=== PATIENT | male | born 1975 | race Caucasian/White ===

== ENCOUNTER 2022-02-10 21:32 | Emergency (ER) | payer SELFPAY ==
[~2022-02-10] VITALS: Ht 165.1 cm; Wt 89.8 kg
[2022-02-10 21:54] VITALS: BP 144/73
--- NOTE | 2022-02-11 00:13 | NUR ---
PT TAKEN TO BED 3
[2022-02-11] MEDS ORDERED: KETOROLAC 30 MG/ML VIAL IVP ONE (00:30)
[2022-02-11] MEDS ORDERED: NACL 0.9% 1,000 ML IV ONE (00:30)
--- NOTE | 2022-02-11 01:15 | NUR ---
Patient A/Ox4, lying in bed, chest rise and fall symmetrical, no s/s of distress.
[2022-02-11 01:27] LABS: BASOPHILS # (AUTO) 0.1 K/uL (0.00-0.22); BASOPHILS % (AUTO) 1.1 % (0.0-2.0); EOSINOPHILS % (AUTO) 0.1 % (0.0-4.0); HEMATOCRIT 41.5 % (36-52); HEMOGLOBIN 14.3 g/dL (12.0-18.0); LYMPHOCYTES # (AUTO) 0.8 K/uL (2.0-11.5); LYMPHOCYTES % (AUTO) 6.9 % (20.5-51.1); MEAN CORPUSCULAR HEMOGLOBIN 29 pg (27-31); MEAN CORPUSCULAR HGB CONC 34 g/dL (33-37); MEAN CORPUSCULAR VOLUME 85.3 fL (80-94); MONOCYTES # (AUTO) 0.3 K/uL (0.8-1.0); MONOCYTES % (AUTO) 2.4 % (1.7-9.3); NEUTROPHILS # (AUTO) 10.9 K/uL (1.8-7.7); PLATELET COUNT (AUTO) 237 K/uL (140-450); RED BLOOD CELL COUNT(AUTO) 4.87 MIL/uL (4.20-6.10); RED CELL DISTRIBUTION WIDTH 13.3 % (11.6-13.7); WHITE BLOOD COUNT (AUTO) 12.2 K/uL (4.8-10.8)
[2022-02-11 01:36] LABS: BILIRUBIN,URINE NEGATIVE (NEGATIVE); BLOOD, URINE NEGATIVE (NEGATIVE); COLOR,URINE YELLOW (YELLOW); LEUKOCYTE ESTERASE ,URINE NEGATIVE (NEGATIVE); NITRITE, URINE NEGATIVE (NEGATIVE); UGLUCOSE NEGATIVE (NEGATIVE)
[2022-02-11 01:51] LABS: APPEARANCE,URINE SLIGHTLY HAZY (CLEAR)
[2022-02-11] MEDS ORDERED: KETOROLAC 30 MG/ML VIAL ONE (01:51)
[2022-02-11 01:52] LABS: RBC,URINE 0-5 /HPF (0-5); URINE AMORPHOUS URATE 1+ /HPF (None Seen); WBC,URINE 0-5 /HPF (0-5)
[2022-02-11 01:53] LABS: ALBUMIN 3.7 g/dL (3.4-5.0); ANION GAP 12.3 (8-16); CARBON DIOXIDE 27.7 mmol/L (21-32); CREATININE 0.8 mg/dL (0.6-1.3); TOTAL BILIRUBIN 0.3 mg/dL (0.0-1.0)
[2022-02-11 01:59] LABS: NEUTROPHILS % (AUTO) 89.5 % (42.2-75.2)
--- NOTE | 2022-02-11 02:10 | NUR ---
Patient A/Ox4, lying in bed, chest rise and fall symmetrical, no s/s of distress.
[2022-02-11] MEDS ORDERED: FAMO-92 PO (03:25)
[2022-02-11 03:41] VITALS: BP 119/74
== END 2022-02-11 03:42 | disposition home or self-care (01) ==
LOC: MED 21:32
DX: K29.70 Gastritis, unspecified, without bleeding (principal)
CPT/HCPCS: 36415; 76705; 80053; 81001; 82150; 83690; 85025; 96361; 96374; 99284; J1885; Q0092; J7030